=== PATIENT | female | born 1985 | race Caucasian/White ===

== ENCOUNTER → 2017-08-20 | Outpatient (CLI) | payer OTHER ==
[~2017-08-20] MED LIST: ARIP10 PO; Amoxicillin500 MG PO; BCP; CYCL10 PO; DIAZ10 PO; DIAZ5 PO; DULO60 PO; Flonase 0.05% N16 GM; GABA300 PO; GABA600 PO; HYDACE10B PO; HYDACE5 PO; IBUP600 PO; IBUP800 PO; LAMO100 PO; LEVSOD50 PO; MELO7.5 PO; METO10 PO; MORP15ER PO; NAPR500 PO; OXYACE5T PO; PRED20 PO; PROACE100 PO; PROM25 PO; Percocet 5-3251 EACH; QUET100 PO; RXCYCL10 PO; RXPROACE PO; SERT50 PO; SUDOGEST PO; SUMA25 PO
[2017-08-20 11:17] LABS: Specimen Source CERVIX
[2017-08-21 10:30] LABS: Source Cervix
== END | disposition home or self-care (01) ==
LOC: LAB 11:09
PROVIDERS: Obstetrics & Gynecology
DX: Z34.03 Encounter for supervision of normal first pregnancy, third trimester (principal); Z3A.35 35 weeks gestation of pregnancy
CPT/HCPCS: 87081; 87491; 87591; 87653

== ENCOUNTER 2017-09-20 22:53 | Inpatient (IN) | payer OTHER ==
[~2017-09-20] VITALS: Ht 160 cm; Wt 82.0 kg
[~2017-09-20 22:53] MED LIST changes: -IBUP800 PO; -Percocet 5-3251 EACH
[2017-09-20 23:48] LABS: BASOPHILS ABSOLUTE AUTO 0.04 K/mm3 (0.00-0.23); BASOPHILS PERCENT AUTO 0 % (0-2); EOSINOPHILS PERCENT AUTO 0 % (0-6); Hematocrit 42.9 % (33.0-51.0); Hemoglobin 14.7 g/dL (11.5-16.0); IMMATURE GRAN ABSOLUTE AUTO 0.12 K/mm3 (0.00-0.10); IMMATURE GRAN PERCENT AUTO 1 % (0-1); LYMPHOCYTES ABSOLUTE AUTO 1.53 K/mm3 (0.84-5.20); LYMPHOCYTES PERCENT AUTO 7 % (21-46); MONOCYTES ABSOLUTE AUTO 1.02 K/mm3 (0.16-1.47); MONOCYTES PERCENT AUTO 5 % (4-13); Mean Corpuscular HGB 31.7 pg (26.0-34.0); Mean Corpuscular HGB Conc 34.3 g/dL (31.5-36.5); Mean Corpuscular Volume 93 fL (80-100); Mean Platelet Volume 9.3 fL (9.1-12.4); NEUTROPHILS ABSOLUTE AUTO 17.89 K/mm3 (1.96-9.15); NEUTROPHILS PERCENT AUTO 87 % (41-73); Platelet Count 272 K/mm3 (150-400); RDW Coefficient Variation 14.4 % (11.7-14.2); RDW Standard Deviation 47.9 fL (35.1-46.3); Red Blood Cell Count 4.64 M/mm3 (3.80-5.20)
[2017-09-21] MEDS ORDERED: LEVSOD50 PO (01:17)
[2017-09-21 03:06] LABS: PCO2 Cord - Arterial 58.3 mmHg (40-50); PO2 Cord - Arterial < 12 mmHg (16-20); pH Cord - Arterial 7.22 (7.28-7.35)
[2017-09-21 03:08] LABS: PCO2 Cord - Venous 48.5 mmHg (40-50); PO2 Cord - Venous 14.6 mmHg (28-32); pH Umbilical Cord - Venous 7.29 (7.26-7.35)
[2017-09-22 12:14] LABS: BASOPHILS ABSOLUTE AUTO 0.02 K/mm3 (0.00-0.23); BASOPHILS PERCENT AUTO 0 % (0-2); EOSINOPHILS ABSOLUTE AUTO 0.08 K/mm3 (0.00-0.68); EOSINOPHILS PERCENT AUTO 1 % (0-6); Hematocrit 29.2 % (33.0-51.0); Hemoglobin 9.9 g/dL (11.5-16.0); IMMATURE GRAN ABSOLUTE AUTO 0.08 K/mm3 (0.00-0.10); IMMATURE GRAN PERCENT AUTO 1 % (0-1); LYMPHOCYTES ABSOLUTE AUTO 2.08 K/mm3 (0.84-5.20); LYMPHOCYTES PERCENT AUTO 15 % (21-46); MONOCYTES ABSOLUTE AUTO 0.75 K/mm3 (0.16-1.47); MONOCYTES PERCENT AUTO 5 % (4-13); Mean Corpuscular HGB Conc 33.9 g/dL (31.5-36.5); Mean Corpuscular Volume 95 fL (80-100); Mean Platelet Volume 9.4 fL (9.1-12.4); NEUTROPHILS ABSOLUTE AUTO 11.14 K/mm3 (1.96-9.15); NEUTROPHILS PERCENT AUTO 79 % (41-73); Platelet Count 207 K/mm3 (150-400); RDW Coefficient Variation 14.2 % (11.7-14.2); RDW Standard Deviation 49.1 fL (35.1-46.3); Red Blood Cell Count 3.09 M/mm3 (3.80-5.20); White Blood Cell Count 14.15 K/mm3 (4.00-11.30)
[2017-09-23] MEDS ORDERED: Percocet 5-3251 EACH (11:21)
[2017-09-23] MEDS ORDERED: IBUP800 PO (11:21)
== END 2017-09-23 12:55 | disposition home or self-care (01) | DRG 765 ==
LOC: OBS 22:53 → BC 22:55 → OBS 23:15 → BC 23:17
PROVIDERS: Obstetrics & Gynecology
PROC: 10D00Z1 Extraction of Products of Conception, Low, Open Approach (ICD-10-PCS; principal; 2017-09-23)
DX: O99.284 Endocrine, nutritional and metabolic diseases complicating childbirth (principal); O41.1230 Chorioamnionitis, third trimester, not applicable or unspecified; E03.9 Hypothyroidism, unspecified; O76 Abnormality in fetal heart rate and rhythm complicating labor and delivery; Z37.0 Single live birth; Z3A.39 39 weeks gestation of pregnancy; O99.334 Smoking (tobacco) complicating childbirth; F17.210 Nicotine dependence, cigarettes, uncomplicated; Z88.5 Allergy status to narcotic agent; Z88.8 Allergy status to other drugs, medicaments and biological substances; Z79.899 Other long term (current) drug therapy
CPT/HCPCS: 36415; 51702; 81003; 82803; 82947; 85025; C9113; J0171; J0690; J1885; J2250; J2370; J2405; J2590; J2765; J3010; J3430; J7120

== ENCOUNTER → 2019-11-15 | Outpatient (CLI) | payer OTHER ==
[~2019-11-15] MED LIST changes: +IBUP800 PO; +Percocet 5-3251 EACH
== END | disposition home or self-care (01) ==
LOC: LAB SHORT 16:20 → LAB 16:20
DX: Z34.83 Encounter for supervision of other normal pregnancy, third trimester (principal); Z3A.36 36 weeks gestation of pregnancy
CPT/HCPCS: 87081; 87653

== ENCOUNTER 2019-11-25 09:40 | Inpatient (IN) | payer OTHER ==
[~2019-11-25] VITALS: Ht 160 cm; Wt 82.7 kg
[2019-11-25] MEDS ORDERED: IRON150C PO (10:08)
[2019-11-25] MEDS ORDERED: EXPECTA PRENAT1 EACH PO (10:09)
[2019-11-25 10:41] LABS: BASOPHILS ABSOLUTE AUTO 0.05 K/mm3 (0.00-0.23); BASOPHILS PERCENT AUTO 0 % (0-2); EOSINOPHILS ABSOLUTE AUTO 0.02 K/mm3 (0.00-0.68); EOSINOPHILS PERCENT AUTO 0 % (0-6); Hematocrit 41.9 % (33.0-51.0); IMMATURE GRAN ABSOLUTE AUTO 0.13 K/mm3 (0.00-0.10); IMMATURE GRAN PERCENT AUTO 1 % (0-1); LYMPHOCYTES ABSOLUTE AUTO 1.23 K/mm3 (0.84-5.20); LYMPHOCYTES PERCENT AUTO 6 % (21-46); MONOCYTES ABSOLUTE AUTO 0.78 K/mm3 (0.16-1.47); MONOCYTES PERCENT AUTO 4 % (4-13); Mean Corpuscular HGB 31.5 pg (26.0-34.0); Mean Corpuscular HGB Conc 33.4 g/dL (31.5-36.5); Mean Corpuscular Volume 94 fL (80-100); Mean Platelet Volume 8.7 fL (9.1-12.4); NEUTROPHILS ABSOLUTE AUTO 20.26 K/mm3 (1.96-9.15); NEUTROPHILS PERCENT AUTO 90 % (41-73); Platelet Count 365 K/mm3 (150-400); RDW Coefficient Variation 13.9 % (11.7-14.2); RDW Standard Deviation 48.1 fL (35.1-46.3); Red Blood Cell Count 4.45 M/mm3 (3.80-5.20); White Blood Cell Count 22.47 K/mm3 (4.00-11.30)
--- NOTE | 2019-11-25 16:00 | NUR ---
ASSUMED CARE OF PT. IN BED. SHE REPORTS FEELING LIKE SHE IS FALLING ASLEEP AND IS AFRAID TO HOLD NB. SHE WOULD LIKE NB TO GO TO OUT OF ROOM SO SHE CAN REST.
--- NOTE | 2019-11-25 18:35 | NUR ---
REPORT TO ONCOMING SHIFT
[2019-11-26 06:09] LABS: BASOPHILS ABSOLUTE AUTO 0.04 K/mm3 (0.00-0.23); BASOPHILS PERCENT AUTO 0 % (0-2); EOSINOPHILS ABSOLUTE AUTO 0.09 K/mm3 (0.00-0.68); EOSINOPHILS PERCENT AUTO 1 % (0-6); Hematocrit 33.9 % (33.0-51.0); Hemoglobin 11.3 g/dL (11.5-16.0); IMMATURE GRAN ABSOLUTE AUTO 0.08 K/mm3 (0.00-0.10); IMMATURE GRAN PERCENT AUTO 1 % (0-1); LYMPHOCYTES ABSOLUTE AUTO 2.34 K/mm3 (0.84-5.20); LYMPHOCYTES PERCENT AUTO 15 % (21-46); MONOCYTES ABSOLUTE AUTO 1.23 K/mm3 (0.16-1.47); MONOCYTES PERCENT AUTO 8 % (4-13); Mean Corpuscular HGB Conc 33.3 g/dL (31.5-36.5); Mean Corpuscular Volume 96 fL (80-100); Mean Platelet Volume 9.1 fL (9.1-12.4); NEUTROPHILS ABSOLUTE AUTO 12.22 K/mm3 (1.96-9.15); NEUTROPHILS PERCENT AUTO 76 % (41-73); Platelet Count 330 K/mm3 (150-400); RDW Coefficient Variation 14.3 % (11.7-14.2); RDW Standard Deviation 49.7 fL (35.1-46.3); Red Blood Cell Count 3.53 M/mm3 (3.80-5.20)
[2019-11-26] MEDS ORDERED: PRENATAL TABLE1 EAC2 PO (10:36)
[2019-11-26] MEDS ORDERED: IBUP800 PO (10:37)
== END 2019-11-26 13:49 | disposition home or self-care (01) | DRG 807 ==
LOC: OBS 09:40 → BC 10:05
PROVIDERS: ADMIT Obstetrics & Gynecology
PROC: 10D07Z6 Extraction of Products of Conception, Vacuum, Via Natural or Artificial Opening (ICD-10-PCS; principal; 2019-11-25)
PROC: 0HQ9XZZ Repair Perineum Skin, External Approach (ICD-10-PCS; 2019-11-25)
DX: O34.219 Maternal care for unspecified type scar from previous cesarean delivery (principal); Z37.0 Single live birth; Z87.891 Personal history of nicotine dependence; E03.9 Hypothyroidism, unspecified; O99.283 Endocrine, nutritional and metabolic diseases complicating pregnancy, third trimester; O76 Abnormality in fetal heart rate and rhythm complicating labor and delivery; Z3A.37 37 weeks gestation of pregnancy; O70.0 First degree perineal laceration during delivery
CPT/HCPCS: 36415; 85025; 86850; 86900; 86901; A9270; J0690; J1885; J2590; J2704; J3010; J7120